=== PATIENT | male | born 1985 | race Two or more races ===

== ENCOUNTER 2023-07-30 10:11 | Outpatient (REF) | payer MEDICAID, SELFPAY ==
--- NOTE | ~2023-07-30 | XR_ITS ---
EXAMINATION: XR FINGER, RIGHT CLINICAL INFORMATION: Volar right thumb swelling. COMPARISON: None available. TECHNIQUE: PA view the right hand as well as oblique and lateral views of the right thumb. FINDINGS: Prominent soft tissue swelling along the volar aspect of the right thumb without soft tissue calcification or radiopaque foreign body. No cortical erosion or periosteal reaction. No acute fracture or dislocation. Normal carpal alignment. No joint space narrowing or marginal osteophytes. XR/XR finger RT min 2V IMPRESSION: 1. Prominent soft tissue swelling along the volar aspect of the right thumb without soft tissue calcification or radiopaque foreign body. 2. No acute osseous abnormality.
== END 2023-07-30 10:12 | disposition home or self-care (01) ==
LOC: HO.HHCX 10:11
PROVIDERS: Visit Provider Emergency Medicine
DX: R22.31 Localized swelling, mass and lump, right upper limb (principal)
CPT/HCPCS: 73140

== ENCOUNTER 2023-09-28 14:01 | Outpatient (REF) | payer MEDICAID, SELFPAY ==
--- NOTE | ~2023-09-28 | US_ITS ---
EXAMINATION: ULTRASOUND RIGHT THUMB CLINICAL INFORMATION: Subcutaneous mass right thumb COMPARISON: None available. TECHNIQUE: High-frequency linear ultrasound transducer was used to examine area of concern in the right thumb FINDINGS: There is a bilobed peanut-shaped firm nonvascular hypoechoic heterogeneous mass seen in the area of clinical concern measuring approximately 4.0 x 1.9 x 1.3 cm. No other masses are seen. The etiology is uncertain. US/US extremity nonvascular fitzgerald IMPRESSION: Nonspecific bilobed hypoechoic mass in the area of clinical concern. MRI could be performed for further evaluation.
== END 2023-09-28 14:02 | disposition home or self-care (01) ==
LOC: HO.HMGCX 14:01
PROVIDERS: PCP Pediatrics; Visit Provider Pediatrics
DX: R22.31 Localized swelling, mass and lump, right upper limb (principal)
CPT/HCPCS: 36415; 76882; 80048; 80061; 80076; 85025; 86706; 86803; 87389

== ENCOUNTER 2023-09-28 14:56 | Outpatient (REF) | payer MEDICAID, SELFPAY ==
[2023-09-28 18:09] LABS: MANUAL DIFF FLAG NO
[2023-09-28 18:20] LABS: Basophils Percent Auto 0.6 % (0-2); Eosinophils Absolute Auto 0.1 X10*3/uL (0.0-0.4); Eosinophils Percent Auto 1.5 % (0-4); Hematocrit 44.2 % (42.0-52.0); Hemoglobin 15.1 g/dl (14.0-18.0); Imm Gran Abs Auto 0.01 X10*3/uL (0.00-0.03); Imm Gran Pct Auto 0.2 % (0.0-0.4); Lymphocytes Absolute Auto 2.5 X10*3/uL (1.2-4.9); Lymphocytes Percent Auto 46.8 % (20-40); Mean Corpuscular HGB Conc 34.2 g/dl (31.0-36.0); Mean Corpuscular Hemoglobin 30.9 pg (27.0-33.0); Mean Corpuscular Volume 90.4 fL (80.0-98.0); Mean Platelet Volume 11.8 fL (9.4-12.4); Monocytes Absolute Auto 0.4 X10*3/uL (0.1-1.2); Monocytes Percent Auto 7.8 % (2-11); Neutrophils Absolute Auto 2.3 x10*3/uL (2.0-8.3); Neutrophils Percent Auto 43.1 % (45-73); Platelet Count 239 X10*3/uL (160-400); Red Blood Count 4.89 X10*6/uL (4.60-5.80); Red Cell Distribution Width 12.7 % (11.0-16.0); White Blood Count 5.4 X10*3/uL (4.8-10.8)
[2023-09-28 18:34] LABS: Alanine Aminotransferase 53 U/L (0-40); Albumin Level 4.7 g/dL (3.5-5.0); Alkaline Phosphatase 67 U/L (39-117); Anion Gap 13 (12-20); Aspartate Amino Transferase 35 U/L (5-37); Bilirubin Direct 0.2 mg/dL (0.0-0.5); Bilirubin Total 1.3 mg/dL (0.0-1.0); Blood Urea Nitrogen 13 mg/dL (9-16); Calcium 10.1 mg/dL (8.4-10.2); Carbon Dioxide 27 mmol/L (22-29); Chloride 103 mmol/L (96-108); Cholesterol 370 mg/dL (<200); Estimated Glomerular Filt Rate > 60; Glucose Fasting 80 mg/dL (60-99); HDL Cholesterol 47 mg/dL (>40); LDL Cholesterol Calculated 280 mg/dL (<100); Potassium 3.8 mmol/L (3.3-5.1); Sodium 139 mmol/L (135-145); Total Protein 8.6 g/dL (6.5-8.0); Triglycerides 216 mg/dL (<150)
[2023-09-29 04:52] LABS: HBS Num1 > 1000.00 mIU/mL (0-7.99); HIV AB/AG Nonreactive (Nonreactive); HIV Num 1 0.05 S/CO (0.00-0.99); ~HepC Num1 0.09 S/CO (0.00-0.79); ~Hepatitis B Surface Antibody REACTIVE (Nonreactive); ~Hepatitis C Antibody Nonreactive (Nonreactive)
== END 2023-09-28 14:57 | disposition home or self-care (01) ==
LOC: HO.CHCLDS 14:56
PROVIDERS: Visit Provider Pediatrics
DX: Z00.00 Encounter for general adult medical examination without abnormal findings (principal)
CPT/HCPCS: 36415; 80048; 80061; 80076; 85025; 86706; 86803; 87389